=== PATIENT | male | born 2000 | race Caucasian/White ===

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

== ENCOUNTER → 2018-10-15 | Day surgery (SDC) | payer OTHER ==
[~2018-10-15] VITALS: Ht 188 cm; Wt 87.1 kg
[~2018-10-15] MED LIST: BUPIVACAINE-EPI 0.5%-1:200000 50 ML VIAL. ONE; DEXAMETHASONE SOD PHOS 20 MG/5 ML VIAL. ONE; GLYCOPYRROLATE 1 MG/5 ML VIAL. ONE; HYDR25CA PO; HYDROmorphone 2 MG/ML VIAL IV PRN; IV RINGERS,LACTATED 1000ML 1,000 ML IV SCH; LIDOCAINE 1% PF 2 ML VIAL. ID PRN; MIDAZOLAM HCL/PF 2 MG/2 ML VIAL. ONE; MORPHINE SULFATE 2 MG/ML VIAL. IV PRN; MULT-246 PO; NEOSTIGMINE METHYLSULFATE 5 MG/5 ML SYRINGE. ONE; ONDANSETRON PF 4 MG/2 ML VIAL. IV PRN; ONDANSETRON PF 4 MG/2 ML VIAL. ONE; OXYC1TAB19 PO; OXYC5CAP PO; OXYC5TAB4 PO; PHENYLEPHRINE in 0.9% NACL PF 1 MG/10 ML SYRINGE. IV ONE; PROCHLORPERAZINE 10 MG/2 ML VIAL. IV PRN; PROPOFOL 20 ML IV ONE; ROCURONIUM 50 MG/5 ML VIAL. ONE; SENN1TAB15 PO; SEVOFLURANE 61 TO 120 MINUTES. IH ONE; fentaNYL PF VIAL 100 MCG/2 ML VIAL IV PRN; fentaNYL PF VIAL 100 MCG/2 ML VIAL ONE; oxyCODONE IR 5 MG TABLET PO ONE
--- NOTE | 2018-10-15 08:22 | PDOC1 ---
History and Physical Date of Admission Date of Admission DATE: 10/15/18 TIME: 08:10 Identification/Chief Complaint Chief Complaint left clavicle hardware pain History of Present Illness History of Present Illness Mr. Tirpathi is a pleasant 18 year old male who is one year s/p orif left clavicle fracture. Patient reports plate prominence with associated discomfort. Patient would like to have his hardware removed. Past Medical History Cardiovascular: No pertinent hx Pulmonary: No pertinent hx GI: No pertinent hx Heme/Onc: No pertinent hx Rheumatologic: No pertinent hx Infectious disease: No pertinent hx Renal/: No pertinent hx Past Surgical History Past Surgical History: Other (ORIF left clavicle fracture 09.01.17) Family History Family History: No Significant Social History Smoke: No ALCOHOL: none Drugs: None Current Medications Current Medications Current Medications Cefazolin Sodium/ Dextrose 50 ml @ 100 mls/hr 1X PREOP PRN IV PRIOR TO PROCEDURE; Start 10/15/18 at 06:00; Stop 10/15/18 at 18:00 Ondansetron HCl (Zofran) 4 mg PRN Q6HRS PRN IV NAUSEA/VOMITING; Start at 07:00; Stop 10/16/18 at 06:59 Fentanyl Citrate (Fentanyl 2ml Vial) 25 mcg PRN Q5MIN PRN IV MILD PAIN; Start 10/15/18 at 07:00; Stop 10/16/18 at 06:59 Fentanyl Citrate (Fentanyl 2ml Vial) 50 mcg PRN Q5MIN PRN IV MODERATE TO SEVERE PAIN; Start 10/15/18 at 07:00; Stop 10/16/18 at 06:59 Morphine Sulfate (Morphine Sulfate) 1 mg PRN Q10MIN PRN IV SEVERE PAIN; Start 10/15/18 at 07:00; Stop 10/16/18 at 06:59 Ringer's Solution 1,000 ml @ 30 mls/hr Q24H IV ; Start 10/15/18 at 07:00; Stop 10/15/18 at 18:59 Lidocaine HCl (Xylocaine-Mpf 1% 2ml Vial) 2 ml PRN 1X PRN ID PRIOR TO IV START ; Start 10/15/18 at 07:00; Stop 10/16/18 at 06:59 Hydromorphone HCl (Dilaudid) 0.5 mg PRN Q10MIN PRN IV SEV PAIN, Second choice; Start 10/15/18 at 07:00; Stop 10/16/18 at 06:59 Prochlorperazine Edisylate (Compazine) 5 mg PACU PRN PRN IV NAUSEA, MRX1; Start 10/15/18 at 07:00; Stop 10/16/18 at 06:59 Propofol 20 ml @ As Directed STK-MED ONCE IV ; Start 10/15/18 at 07:48; Stop 10/15/18 at 07:49; Status DC Dexamethasone Sodium Phosphate (Decadron) 20 mg STK-MED ONCE .ROUTE ; Start at 07:48; Stop 10/15/18 at 07:49; Status DC Ondansetron HCl (Zofran) 4 mg STK-MED ONCE .ROUTE ; Start 10/15/18 at 07:48; Stop 10/15/18 at 07:49; Status DC Midazolam HCl (Versed) 2 mg STK-MED ONCE .ROUTE ; Start 10/15/18 at 07:48; Stop 10/15/18 at 07:49; Status DC Fentanyl Citrate (Fentanyl 2ml Vial) 100 mcg STK-MED ONCE .ROUTE ; Start at 07:49; Stop 10/15/18 at 07:50; Status DC Rocuronium [place] (Zemuron) 50 mg STK-MED ONCE .ROUTE ; Start 10/15/18 at 07: 50; Stop 10/15/18 at 07:51; Status DC Active Scripts Active Percocet 7.5-325 Mg Tablet (Oxycodone/Acetaminophen) 1 Each Tablet 1 Tab PO QID PRN Reported Multi-Vitamin Daily (Multivitamin) 1 Each Tablet 1 Each PO DAILY Allergies Allergies: Coded Allergies: No Known Drug Allergies (Unverified , 10/15/18) ROS General: No: Chills, Fatigue PSYCHOLOGICAL ROS: No: Anxiety, Depression Eyes: No Blurry vision, No Loss of vision, No Photophobia HEENT: No: Heacaches, Visual Changes, Nasal congestion, Sore Throat Hematological and Lymphatic: No: Bleeding Problems, Blood Clots, Brusing Respiratory: No: Cough, Shortness of breath Cardiovascular: No Chest Pain, No Palpitations Gastrointestinal: No Nausea, No Vomiting, No Abdominal Pain Genitourinary: No Dysuria, No Incontinence, No Discharge Musculoskeletal: Yes Joint Pain, Yes Muscle Pain; No Joint Swelling, No Muscular Weakness Neurological: No Confusion, No Dizziness, No Numbness/Tingling Physical Exam General: Alert, Oriented X3 HEENT: Atraumatic, PERRLA, Mucous membr. moist/pink Heart: RRR Extremities: Other (Left shoulder: Incision is well healed. No erythema or drainage. Neurovascularly intact distally. Plate is prominent over superior clavicle. Range of motion: FE: 170 ER: 60 IR: T12) VTE Prophylaxis Ordered VTE Prophylaxis Devices: Yes VTE Pharmacological Prophylaxi: No Assessment/Plan Assessment/Plan The patient is a 18 year-old right-hand dominant male who presents one year s/p orif left clavicle fracture on 09.01.17. We discussed surgical removal of the plate over clavicle due to discomfort. We explained that for the first month after his surgery he is at risk for re-fracture. The risks and benefits were discussed with the patient. Informed consent was obtained. Plan for surgery this morning. Discharge home after surgery per anesthesia. LUCIA BERRIOS Oct 15, 2018 08:21
[2018-10-15 08:36] LABS: BASO # 0.1 x10^3/uL (0.0-0.2); BASO % 1 % (0-3); EOS # 0.2 x10^3/uL (0.0-0.7); EOS % 3 % (0-3); HEMATOCRIT 46.2 % (39.0-53.0); HEMOGLOBIN 15.7 g/dL (13.0-17.5); LYMPH # 1.9 x10^3/uL (1.0-4.8); LYMPH % 36 % (24-48); MEAN CORPUSCULAR HEMOGLOBIN 31 pg (25-35); MEAN CORPUSCULAR HGB CONC 34 g/dL (31-37); MEAN CORPUSCULAR VOLUME 92 fL (79-100); MONO # 0.6 x10^3/uL (0.0-1.1); MONO % 11 % (0-9); NEUT # 2.6 x10^3uL (1.8-7.7); NEUT % 49 % (31-73); PLATELET COUNT 264 x10^3/uL (140-400); RED BLOOD COUNT 5.05 x10^6/uL (4.30-5.70); RED CELL DISTRIBUTION WIDTH 12.8 % (11.5-14.5); WHITE BLOOD COUNT 5.4 x10^3/uL (4.0-11.0)
--- NOTE | 2018-10-15 08:37 | PDOC4 ---
Operative Note Operative Note Date of Surgery: 10/15/2018 Preoperative diagnosis: Left type III clavicle fracture , prominent orthopaedic hardware Postoperative diagnosis: same Operative procedure: Hardware removal, deep; CPT 14579 Ebl: 5 cc Indication: The patient is a 18 year old right hand dominant male who sustained a left lateral clavicle fracture. He had a plate placed nearly a year ago and tolerated it well. His fracture is well healed. He needed his plate removed due to prominence and soft tissue discomfort. After a discussion of the risks and benefits of operative versus non-operative treatment, he would like to proceed with the above stated procedure. Written consent was obtained. Description of procedure The patient was taken to the operating room, where general anesthesia was achieved. The patient's left shoulder was sterilely prepped and draped in the usual fashion. His previous curvilinear incision centered over the anterior axis of the clavicle was reopened. This was carried out sharply to the subcutaneous tissue using Bovie electrocautery, coagulating bleeding vessels. Care was take to avoid damaging the overlying supraclavicular nerves. The plate was identified and soft tissue over the plate lifted off with an elevator. The screws were removed from the plate without difficulty. The plate was also removed easily. The bone was debrided of any prominences and scar tissue. The area was irrigated well. The periosteal sheath was then imbricated over the top of the clavicle with multiple sutures of 0 PDS. The subcutaneous tissue was closed with 3-0 moncryl, the skin was closed with a running subcuticular 3-0 prolene suture and Steri-Strips and the wound was instilled with 0.25% marcaine with epi. The patient placed in a sling and was transferred to the stretcher and the PACU in stable condition. He is wbat in his LUE, and can follow-up in my clinic in 2 week for incision check. TONO CHEW MD Oct 15, 2018 08:37
[2018-10-15 08:48] LABS: CALCIUM 9.8 mg/dL (8.5-10.1); CREATININE 1.1 mg/dL (0.7-1.3); GFR 85.3; POTASSIUM 4.3 mmol/L (3.5-5.1)
[2018-10-15 08:57] LABS: PROTHROMBIN TIME PATIENT 12.4 SEC (11.7-14.0)
--- NOTE | 2018-10-15 11:04 | PDOC ---
BRIEF OPERATIVE NOTE Date: Oct 15, 2018 Pre-Op Diagnosis Left clavicle painful hardware Post-Op Diagnosis Same Procedure Performed Left clavicle hardware removal with incision reconstruction Surgeon Franchesca Gray MD [employer]fter Lucia Huff PA-C Anesthesia Type: General Blood Loss 10 ml Findings None Complications None Operative Note To PACU in stable condition LUCIA HUFF Oct 15, 2018 11:04
--- NOTE | 2018-10-15 11:06 | DISCH ---
DISCHARGE INSTRUCTIONS Condition on Discharge Condition on Discharge: Stable Activity After Discharge Activity Instructions for Disc: Activity as tolerated Lifting Instructions after Dis: No heavy lifting, Do not lift >10 pounds, Add. restrict see below (No shoulder range of motion) Driving Instructions after Dis: Do not drive Weight Bearing Status after Di: As tolerated Diet after Discharge Diet after Discharge: Regular Diet Texture: Regular Swallowing Supervision: None needed Wound Incision Care Wound/Incision Care: Ice to area for comfort Wound Care Equipment: Dressings Follow-Up Follow up with: Dr Gray in 7-10 days LUCIA BERRIOS Oct 15, 2018 11:06
[2018-10-15] MEDS: fentaNYL PF VIAL 100 MCG/2 ML VIAL IV PRN ×3 (11:10→11:58)
[2018-10-15 12:27] VITALS: BP 128/46
== END | disposition home or self-care (01) ==
LOC: SURG 07:52
PROVIDERS: ATTEND Orthopaedic Surgery
DX: T84.84XA Pain due to internal orthopedic prosthetic devices, implants and grafts, initial encounter (principal); Z98.890 Other specified postprocedural states; Z79.899 Other long term (current) drug therapy; Z79.01 Long term (current) use of anticoagulants; G89.18 Other acute postprocedural pain; Y83.1 Surgical operation with implant of artificial internal device as the cause of abnormal reaction of the patient, or of later complication, without mention of misadventure at the time of the procedure; Y92.89 Other specified places as the place of occurrence of the external cause
CPT/HCPCS: 20680; 36415; 80048; 82306; 85025; 85610; 85730; 86850; 86900; 86901; A7015; J0690; J0780; J1100; J2250; J2370; J2405; J2704; J2710; J3010; J3490